=== PATIENT | female | born 1985 | race American Indian/Alaskan Native ===

== ENCOUNTER 2018-01-19 08:09 | Emergency (ER) | payer OTHER ==
[2018-01-19 08:18] VITALS: BP 109/76
[2018-01-19] MEDS ORDERED: DELTASONE PO ONE (09:07)
[2018-01-19] MEDS ORDERED: DUONEB *Not for PRN Use IH ONE (09:07)
--- NOTE | 2018-01-19 09:07 | Emergency Department Report ---
Minor Respiratory - HPI Chief Complaint: Upper Respiratory Infection Stated Complaint: FLU SYMPTOMS Time Seen by Provider: 01/19/18 09:07 Duration: 2 Days Pain Location: Chest Severity: moderate Minor Respiratory: Yes Rhinorrhea (nasal congestion and runny nose for over a week), Yes Able to Tolerate Fluids, Yes Cough (with some wheezing and dry cough) , Yes Chest Pain (with cough and 4/10 and achy), No Sore Throat, No Ear Pain, No Sick Contacts, No Hemoptysis, No Shortness of Breath, No Fever (chills) Other History: This is a 32-year-old female here report that she has been having nasal congestion and runny nose for over 1 week and it turned into chest congestion with wheezing and coughing 2 days ago. She reports chills without any fever. Denies any medical problems. She reports pain with cough into her chest wall. Denies any nausea or vomiting. Denies any shortness of breath. Denies any sore throat or earache. Denies any headache. Pain with cough and 4/ 10 , a can and alleviated after coughing and exacerbated with coughing. Over- the-counter cough and cold taken without any success. ED Review of Systems ROS: Stated complaint: FLU SYMPTOMS Other details as noted in HPI Constitutional: chills. denies: fever Eyes: denies: eye pain, eye discharge, vision change ENT: congestion. denies: ear pain, throat pain Respiratory: cough, wheezing. denies: shortness of breath, SOB with exertion, SOB at rest, stridor Cardiovascular: denies: chest pain, palpitations, edema, syncope Gastrointestinal: denies: abdominal pain, nausea, vomiting, diarrhea Musculoskeletal: myalgia (body ache). denies: back pain, joint swelling, arthralgia Skin: denies: rash, lesions Neurological: denies: headache, weakness, numbness, paresthesias, confusion, abnormal gait, vertigo ED Past Medical Hx - Past Medical History Previous Medical History?: No - Surgical History Past Surgical History?: No - Family History Family history: hypertension - Social History Smoking Status: Never Smoker Substance Use Type: None - Medications Home Medications: Home Medications Medication Instructions Recorded Confirmed Last Taken Type ALBUTEROL Inhaler [ProAir HFA 2 puff IH Q6H PRN #1 inhalation 01/19/18 Unknown Rx Inhaler] Azithromycin [Zithromax Z-ADITYA] 250 mg PO DAILY 5 Days #1 pkg 01/19/18 Unknown Rx Benzonatate [Tessalon Perle] 100 mg PO Q8H PRN #15 capsule 01/19/18 Unknown Rx Cetirizine HCl [ZyrTEC] 10 mg PO QDAY 21 Days #21 01/19/18 Unknown Rx tab.rapdis Fluticasone [Flonase] 1 spray NS QDAY 14 Days #1 bottle 01/19/18 Unknown Rx methylPREDNISolone [Medrol Dose 4 mg PO DAILY #1 tab.ds.pk 01/19/18 Unknown Rx Aditya] Minor Respiratory Exam - Exam General: Vital signs noted. No distress. Alert and acting appropriately. This is a 32-year-old female well-nourished well-developed in no acute distress. HEENT: Yes Moist Mucous Membranes (uvula midline and oral airways patent), Yes Rhinorrhea (nasal congestion with runny nose and erythema.), No Pharyngeal Erythema, No Pharyngeal Exudates, No Conjuctival Injection, No Frontal Tenderness, No Maxillary Tenderness Ear: Neither TM Bulge (bilateral team congested without erythema), Neither EAC Pain, Neither EAC Discharge Neck: Yes Supple (full range of motion.), No Adenopathy Lungs: Yes Wheezes (scattered wheezes into upper lung arcos), Yes Ronchi ( cleared with cough), Yes Cough (congested cough), No Stridor, No Labored Respirations, No Retractions, No Use of Accessory Muscles, No Other Abnormal Lung Sounds Heart: Yes Regular (S1, S2.), No Murmur Abdomen: Yes Normal Bowel Sounds (in all quadrants), No Tenderness, No Peritoneal Signs Skin: No Rash, No Edema Neurologic: Alert and oriented 3 with normal gait, no deficits. Musculoskeletal: Unremarkable. ED Course Vital Signs 01/19/18 08:15 Temperature 97.7 F Pulse Rate 69 Respiratory 18 Rate Blood Pressure 109/76 O2 Sat by Pulse 97 Oximetry - Reevaluation(s) Reevaluation #1: 01/19/18 10:12 Patient given Deltasone 60 mg by mouth and DuoNeb 1 nebulizer treatment. Upon reevaluation, lung sounds cleared since she feels better 01/19/18 10:12 ED Medical Decision Making - Medical Decision Making This is a 32-year-old female here report that she has been having upper respiratory and lower respiratory symptoms over the last 7 days that is getting worse over the last 2 days and taken [id number] cough and cold and medications not helping. She is here to be evaluated Patient was seen and evaluated by myself and she is found to have sinusitis with nasal congestion and erythema and clear drainage, maxillary and frontal sinus nontender to palpate. She has scattered wheezing to upper lung arcos with rhonchi that cleared with coughing. Congested cough and no use of accessory muscle. Patient also has bronchitis. She was given DuoNeb 1 nebulizing emergency room which relieved her wheezing and and 60 MG BY MOUTH. I DISCUSSED THE PATIENT HER DIAGNOSIS AND TREATMENT PLAN AND SHE VOICED UNDERSTANDING. PATIENT DOES NOT HAVE A PRIMARY CARE PHYSICIAN but she does have access to primary care so go ahead and refer her to Dr. Deric Cabral internal medicine and [facility] family practice for follow-up visit. EKG due to complaints of chest wall pain and coughing shows sinus bradycardia at 56 bpm. Patient is asymptomatic with a heart rate less than 60. I discussed the patient's that she will need to follow up with primary care in 2-3 days and she voiced understanding. Her vital signs are stable she is afebrile and coughing has diminished. Patient discharged home in stable condition with prescription for albuterol inhaler, Medrol Dosepak, Z-Aditya, Tessalon Perle, Zyrtec and Flonase. Critical care attestation.: If time is entered above; I have spent that time in minutes in the direct care of this critically ill patient, excluding procedure time. ED Disposition Clinical Impression: URI with cough and congestion Acute bronchitis Qualifiers: Bronchitis organism: other organism Qualified Code(s): J20.8 - Acute bronchitis due to other specified organisms Sinusitis, acute Qualifiers: Sinusitis location: unspecified location Recurrence: not specified as recurrent Qualified Code(s): J01.90 - Acute sinusitis, unspecified Disposition: - TO HOME OR SELFCARE Is pt being admited?: No Does the pt Need Aspirin: No Condition: Stable Instructions: Acute Bronchitis (ED), Upper Respiratory Infection (ED), Acute Cough (ED), Sinusitis (ED) Additional Instructions: Please take antibiotic as prescribed Follow-up with primary care physician in 2 to 3 days If your condition worsens to include difficulty breathing, swallowing, chest pain, nausea and vomiting and fever, please return to the emergency room KEI[facility]. Take Zyrtec and Flonase to relieve congestion A Tessalon Perle for cough Increasing fluid intake Use nasal saline wash to flush and nostrils. Prescriptions: Benzonatate [Tessalon Perle] 100 mg PO Q8H PRN #15 capsule PRN Reason: cough Referrals: PRIMARY CARE, [Primary Care Provider] - 2-3 Days [facility] [Outside] - 2-3 Days DERIC CABRAL MD [Staff Physician] - 2-3 Days Forms: Work/School Release Form(ED)
== END 2018-01-19 10:41 | disposition home or self-care (01) ==
LOC: ED 08:09
DX: J20.8 Acute bronchitis due to other specified organisms (principal); J01.90 Acute sinusitis, unspecified; J06.9 Acute upper respiratory infection, unspecified
CPT/HCPCS: 93005; 93010; 94640; 99283; J7512